=== PATIENT | male | born 2000 | race Caucasian/White ===

== ENCOUNTER 2018-10-10 00:21 | Emergency (ER) | payer BC, OTHER ==
[~2018-10-10] VITALS: Ht 177.8 cm; Wt 70.3 kg
[~2018-10-10 00:21] MED LIST: AMIT10TA6 PO; CLAR-19 PO; PRM25T PO
[2018-10-10] MEDS ORDERED: ONDANSETRON 4 MG (ZOFRAN) ORAL DISSOLVE TAB PO ONE (01:15)
[2018-10-10] MEDS ORDERED: IBUPROFEN 800 MG (MOTRIN) TAB PO ONE (01:15)
[2018-10-10] MEDS ORDERED: ACETAMINOPHEN 500 MG TAB (TYLENOL) PO ONE (01:15)
--- NOTE | 2018-10-10 01:50 | ED General ---
General Chief Complaint: Fever-Adult/Adol Stated Complaint: CHEST PAINS; THROAT NUMB; BODY ACHES Nursing Triage Note: PT PRESENTS TO ED WITH COMPLAINTS OF FEVER, CHILLS, MALAISE, AND THROAT NUMBNESS STARTING AT 1600 YESTERDAY. PT DENIES TAKING ANY FEVER REDUCES SINCE S/S STARTED. Nursing Sepsis Screen: No Definite Risk Source of Information: Patient Exam Limitations: No Limitations History of Present Illness Date Seen by Provider: Oct 10, 2018 Time Seen by Provider: 01:06 Initial Comments PT ARRIVES VIA POV WITH MOM STATES HE FELT FINE THIS AM AND WENT TO WORK, THEN AROUND 1600, HE BEGAN RUNNING FEVER--TEMP WAS 100.5 AT WORK DID NOT TAKE ANY THING FOR FEVER, AND NOW TEMP IS 102.7, SO CAME HERE. AGAIN DID NOT TAKE ANYTHING FOR FEVER C/O BODY ACHES C/O CHILLS C/O NAUSEA, NO VOMITING OR DIARRHEA, NO ABDOMINAL PAIN STATES HIS THROAT DOES NOT HURT--"IT FEELS NUMB" NO COUGH/CONGESTION NO CHEST PAIN OR SHORTNESS OF BREATH NO KNOWN SICK CONTACTS PCP: NONE Allergies and Home Medications Allergies Coded Allergies: No Known Drug Allergies (Unverified , 10/10/18) Home Medications Amoxicillin/Potassium Clav 1 Each Tablet, 1 EACH PO BID Prescribed by: ABRAHAM SHIRLEY on 10/10/18203 Ondansetron 4 Mg Tab.rapdis, 4 MG PO Q4H Prescribed by: ABRAHAM SHIRLEY on 10/10/18203 Patient Home Medication List Home Medication List Reviewed: Yes Review of Systems Review of Systems Constitutional: see HPI, fever, malaise EENTM: see HPI; No ear pain, No nose congestion Respiratory: no symptoms reported; No cough, No short of breath, No wheezing Cardiovascular: no symptoms reported Gastrointestinal: see HPI; No abdominal pain, No diarrhea, No loss of appetite ; nausea; No vomiting Genitourinary: no symptoms reported Musculoskeletal: see HPI (BODY ACHES) Skin: no symptoms reported Psychiatric/Neurological: No Symptoms Reported; Denies Headache Hematologic/Lymphatic: No Symptoms Reported Immunological/Allergic: no symptoms reported Past Pcivtac-Qwhrfv-Tnoayi Hx Patient Social History Alcohol Use: Denies Use Recreational Drug Use: No Smoking Status: Never a Smoker Recent Foreign Travel: No Contact w/Someone Who Travel: No Recent Infectious Disease Expo: No Recent Hopitalizations: No Physical Abuse: No Sexual Abuse: No Mistreated: No Fear: No Seasonal Allergies Seasonal Allergies: No Past Medical History Surgeries: Yes Appendectomy Respiratory: No Cardiac: No Neurological: No Genitourinary: No Gastrointestinal: No Musculoskeletal: No Endocrine: No HEENT: No Cancer: No Psychosocial: No Integumentary: No Blood Disorders: No Physical Exam Vital Signs Vital Signs - First Documented 10/10/18 01:25 Temp 102.3 Pulse 110 Resp 18 B/P (MAP) 135/79 (97) Pulse Ox 97 Capillary Refill : Less Than 3 Seconds Height, Weight, BMI Height: 5'10.00" Weight: 155lbs. oz. 70.043147qh; BMI Method:Stated General Appearance: No Apparent Distress, WD/WN, Thin HEENT: PERRL/EOMI, Pharyngeal Erythema; No Photophobia, No Tonsillar Exudate; Other (RIGHT TM PINK/DULL; ) Neck: Full Range of Motion, Non Tender, Supple, Lymphadenopathy (L) (MILD ANTERIOR), Lymphadenopathy (R) (MILD ANTERIOR) Respiratory: Normal Breath Sounds, No Accessory Muscle Use, No Respiratory Distress Cardiovascular: Regular Rate, Rhythm, No Edema, No JVD, No Murmur, Normal Peripheral Pulses Gastrointestinal: Normal Bowel Sounds, No Organomegaly, No Pulsatile Mass, Non Tender, Soft Back: Normal Inspection, No CVA Tenderness, No Vertebral Tenderness Extremity: Normal Capillary Refill, Normal Inspection, Normal Range of Motion, Non Tender, No Calf Tenderness, No Pedal Edema Neurologic/Psychiatric: Alert, Oriented x3, No Motor/Sensory Deficits, Normal Mood/Affect, wheel roller II-XII Norm as Tested Skin: Normal Color, Diaphoresis (VERY WARM); No Rash Progress/Results/Core Measures Suspected Sepsis Recent Fever Within 48 Hours: No Infection Criteria Present: None New/Unexplained Altered Menta: No Sepsis Screen: No Definite Risk SIRS Temperature:102.3 Pulse: 110 Respiratory Rate: 18 Blood Pressure 135 /79 Mean: 97 Results/Orders Lab Results Laboratory Tests Test 10/10/18 01:27 Range/Units Group A Streptococcus Screen NEGATIVE NEGATIVE Micro Results Microbiology 10/10/18 Influenza Types A,B Antigen (ELVIS) - Final, Complete My Orders Orders - ABRAHAM SHIRLEY DO Acetaminophen Tablet (Tylenol Tablet) (10/10/18 01:15) Ibuprofen Tablet (Motrin Tablet) (10/10/18 01:15) Rapid Strep A Screen (10/10/18 01:14) Influenza A And B Antigens (10/10/18 01:14) Ondansetron Oral Dissolve Tab (Zofran (10/10/18 01:15) Amoxicillin/Clavulanate Tablet (Augmenti (10/10/18 07:00) Rx-Ondansetron Po (Rx-Zofran Po) (10/10/18 02:00) Medications Given in ED Current Medications Medications Dose Ordered Sig/Maxi Route Start Time Stop Time Status Last Admin Dose Admin Acetaminophen 1,000 mg ONCE ONCE PO 10/10/18 01:15 10/10/18 01:16 DC 10/10/18 01:40 1,000 MG Ibuprofen 800 mg ONCE ONCE PO 10/10/18 01:15 10/10/18 01:16 DC 10/10/18 01:51 800 MG Ondansetron HCl 4 mg ONCE ONCE PO 10/10/18 01:15 10/10/18 01:16 DC 10/10/18 01:40 4 MG Vital Signs/I&O 10/10/18 01:25 Temp 102.3 Pulse 110 Resp 18 B/P (MAP) 135/79 (97) Pulse Ox 97 Capillary Refill : Less Than 3 Seconds Blood Pressure Mean: 97 Progress Note : Progress Note TEMP DOWN AND FEELS MUCH BETTER, AND ABLE TO REST FOR REMAINDER OF ER STAY NAUSEA GONE BODY ACHES GONE NO LONGER DIAPHORETIC Departure Impression Primary Impression: Pharyngitis Additional Impression: Right otitis media Disposition: HOME, SELF-CARE Condition: Improved Departure-Patient Inst. Patient Instructions: Sore Throat, Adult (DC), Ear Infections (Otitis Media) ( DC) Add. Discharge Instructions: LOTS OF CLEAR LIQUIDS--WATER, BROTH, JELLO, GATORADE BRATS DIET--BANANAS, RICE, APPLESAUCE, TOAST, SALTINES---UNTIL YOUR NAUSEA IS BETTER, THEN ADVANCE DIET TOLERATED ALTERNATE TYLENOL AND MOTRIN EVERY 2-3 HOURS NEEDED FOR PAIN OR FEVER FOLLOW UP WITH OF JUDY IN 3-4 DAYS IF NO BETTER All discharge instructions reviewed with patient and/or family. Voiced understanding. Scripts Ondansetron (Ondansetron Odt) 4 Mg Tab.rapdis 4 MG PO Q4H for Nausea/Vomiting, #10 TAB Prov: ABRAHAM SHIRLEY DO 10/10/18 Amoxicillin/Potassium Clav (Augmentin 875-125 Tablet) 1 Each Tablet 1 EACH PO BID for INFECTION, #20 TAB Prov: ABRAHAM SHIRLEY DO 10/10/18 Work/School Note: Work Release Form Date Seen in the Emergency Department: Oct 10, 2018 Return to Work: Oct 12, 2018 ABRAHAM SHIRLEY DO Oct 10, 2018 01:50
[2018-10-10] MEDS ORDERED: RX-ONDANSETRON 4 MG ODT (ZOFRAN) PPK #4 PO STA (02:00)
[2018-10-10] MEDS ORDERED: AMOX-358 PO (02:04)
[2018-10-10] MEDS ORDERED: ONDA4TAB11 PO (02:04)
[2018-10-10] MEDS ORDERED: AUGMENTIN 875 MG TAB (AMOXICILLIN/CLAVULANATE) ONE (02:10)
[2018-10-10 02:14] VITALS: BP 113/63
[2018-10-10] MEDS ORDERED: AUGMENTIN 875 MG TAB (AMOXICILLIN/CLAVULANATE) PO SCH (07:00)
== END 2018-10-10 02:14 | disposition home or self-care (01) ==
LOC: EDUNIT# 00:21 → ER 00:25 → MERGE 00:25 → ER 02:14
DX: J02.9 Acute pharyngitis, unspecified (principal); H66.91 Otitis media, unspecified, right ear; Z90.49 Acquired absence of other specified parts of digestive tract
CPT/HCPCS: 87430; 87804

== ENCOUNTER 2019-09-18 20:21 | Emergency (ER) | payer BC ==
[~2019-09-18] VITALS: Ht 180 cm; Wt 72.0 kg
[~2019-09-18 20:21] MED LIST changes: +AMOX-358 PO; +ONDA4TAB11 PO
[2019-09-18 21:17] LABS: BASOPHILS % (AUTO) 0 % (0-10); EOSINOPHILS # (AUTO) 0.1 10^3/uL (0.0-0.3); EOSINOPHILS % (AUTO) 1 % (0-10); HEMATOCRIT 42 % (40-54); LYMPHOCYTES # (AUTO) 2.2 X 10^3 (1.0-4.0); LYMPHOCYTES % (AUTO) 17 % (12-44); MEAN CORPUSCULAR HEMOGLOBIN 29 PG (25-34); MEAN CORPUSCULAR HGB CONC 33 G/DL (32-36); MEAN CORPUSCULAR VOLUME 87 FL (80-99); MEAN PLATELET VOLUME 9.7 FL (7.4-10.4); MONOCYTES # (AUTO) 1.1 X 10^3 (0.0-1.0); MONOCYTES % (AUTO) 8 % (0-12); NEUTROPHILS # (AUTO) 9.6 X 10^3 (1.8-7.8); NEUTROPHILS % (AUTO) 73 % (42-75); PLATELET COUNT 226 10^3/uL (130-400); RED CELL DISTRIBUTION WIDTH 13.2 % (10.0-14.5); WHITE BLOOD COUNT 13.1 10^3/uL (4.3-11.0)
[2019-09-18 21:24] LABS: INR 1.1 (0.8-1.4); PROTHROMBIN TIME PATIENT 15.1 SEC (12.2-14.7)
--- NOTE | 2019-09-18 21:24 | Diagnostic Imaging Report ---
INDICATION: Chest pain EXAMINATION: PA and lateral views of the chest. FINDINGS: The heart size and vascularity are normal. Lungs are clear. There is no effusion. There is no acute bony abnormality. IMPRESSION: 1. No acute abnormality is seen. 2. There is no change from 04/29/2010. Dictated by: Dictated on workstation # [id number]
[2019-09-18 21:33] LABS: ALANINE AMINOTRANSFERASE 20 U/L (0-55); ALBUMIN 4.6 GM/DL (3.2-4.5); ALKALINE PHOSPHATASE 46 U/L (40-136); BILIRUBIN,TOTAL 0.2 MG/DL (0.1-1.0); BUN/CREATININE RATIO 11; CALCIUM 9.5 MG/DL (8.5-10.1); CARBON DIOXIDE 24 MMOL/L (21-32); CHLORIDE 103 MMOL/L (98-107); CREATININE SERUM 1.06 MG/DL (0.60-1.30); GFR ESTIMATED > 60; GLUCOSE 85 MG/DL (70-105); POTASSIUM 3.7 MMOL/L (3.6-5.0); SODIUM 139 MMOL/L (135-145); TOTAL PROTEIN 7.7 GM/DL (6.4-8.2)
--- NOTE | 2019-09-18 21:48 | ED Chest Pain ---
General Chief Complaint: Chest Pain Stated Complaint: CHEST PAIN Nursing Triage Note: Patient states he has been experiencing chest pain for a couple months and that he was told at a physical that he had high blood pressure and should follow up. He states when chest pain occurred tonight he felt he should get checked out. Patient c/o left sided chest pain rating at 7/10. Nursing Sepsis Screen: No Definite Risk Source: patient Exam Limitations: no limitations History of Present Illness Date Seen by Provider: Sep 18, 2019 Time Seen by Provider: 20:41 Initial Comments This 19-year-old male presents to the emergency room with pain across the left chest radiating into the right chest intermittently for about one month. He has also had some headaches recently. Today he had chest pain upon returning home from work but feels normal without pain on presentation. He denies any fever or shortness of breath. He has had a mild cough recently. He denies any exposure to walsh virus or individuals who have traveled from high risk areas or persons under investigation. He denies any alleviating or exacerbating factors except sometimes he has a sharp exacerbation of the pain when he makes abrupt movements and occasionally with a deep breath. He denies any increased pain with exertion. He denies any lower extremity symptoms. He is not tachycardic or hypoxic. He does not smoke. Vital signs are normal on presentation. Allergies and Home Medications Allergies Coded Allergies: NKANo Known Allergies (Unverified Allergy, Mild, 01/31/09) Home Medications Amitriptyline HCl 10 Mg Tablet, 10 MG PO HS Prescribed by: DENNIS MACDONALD on 05/30/15 0618 Amoxicillin/Potassium Clav 1 Each Tablet, 1 EACH PO BID Prescribed by: ABRAHAM SHIRLEY on 10/10/18203 Ondansetron 4 Mg Tab.rapdis, 4 MG PO Q4H Prescribed by: ABRAHAM SHIRLEY on 10/10/18203 Patient Home Medication List Home Medication List Reviewed: Yes Review of Systems Review of Systems Constitutional: no symptoms reported EENTM: No Symptoms Reported Respiratory: See HPI Cardiovascular: See HPI Gastrointestinal: No Symptoms Reported Genitourinary: No Symptoms Reported Musculoskeletal: see HPI Skin: no symptoms reported Psychiatric/Neurological: No Symptoms Reported Endocrine: No Symptoms Reported Hematologic/Lymphatic: No Symptoms Reported Past Svnsiqc-Kwiocu-Ijcuox Hx Past Med/Social Hx: Reviewed Nursing Past Med/Soc Hx Patient Social History Alcohol Use: Occasionally Uses Recreational Drug Use: No Smoking Status: Never a Smoker Recent Foreign Travel: No Contact w/Someone Who Travel: No Recent Infectious Disease Expo: No Recent Hopitalizations: No Immunizations Up To Date Tetanus Booster (TDap): More than 5yrs Seasonal Allergies Seasonal Allergies: No Past Medical History Surgeries: Yes Appendectomy Respiratory: No Cardiac: No Neurological: Yes Headaches /Migraines Reproductive Disorders: No Genitourinary: No Gastrointestinal: No Musculoskeletal: No Endocrine: No HEENT: No Cancer: No Psychosocial: No Integumentary: No Blood Disorders: No Family Medical History Reviewed Nursing Family Hx No Pertinent Family Hx Physical Exam Vital Signs Vital Signs - First Documented 09/18/19 20:33 Pulse 74 Resp 14 B/P (MAP) 130/76 (94) Pulse Ox 99 O2 Delivery Room Air Capillary Refill : Less Than 3 Seconds Height, Weight, BMI Height: 5'10.00" Weight: 155lbs. oz. 70.872862df; 22.00 BMI Method:Stated General Appearance: No Apparent Distress, WD/WN HEENT: PERRL/EOMI, TMs Normal, Normal ENT Inspection, Pharynx Normal Neck: Normal Inspection Respiratory: Chest Non Tender, Lungs Clear, Normal Breath Sounds, No Accessory Muscle Use, No Respiratory Distress Cardiovascular: Regular Rate, Rhythm, No Edema, No Murmur Gastrointestinal: Normal Bowel Sounds, Non Tender, Soft Extremity: Normal Inspection, Non Tender, No Calf Tenderness, No Pedal Edema, Other (negative Luisito) Neurologic/Psychiatric: Alert, Oriented x3, No Motor/Sensory Deficits, Normal Mood/Affect, cold header II-XII Norm as Tested Skin: Normal Color, Warm/Dry Progress/Results/Core Measures Results/Orders Lab Results Laboratory Tests Test 09/18/19 20:55 Range/Units White Blood Count 13.1 H 4.3-11.0 10^3/uL Red Blood Count 4.87 4.35-5.85 10^6/uL Hemoglobin 14.0 13.3-17.7 G/DL Hematocrit 42 40-54 % Mean Corpuscular Volume 87 80-99 FL Mean Corpuscular Hemoglobin 29 25-34 PG Mean Corpuscular Hemoglobin Concent 33 32-36 G/DL Red Cell Distribution Width 13.2 10.0-14.5 % Platelet Count 226 130-400 10^3/uL Mean Platelet Volume 9.7 7.4-10.4 FL Neutrophils (%) (Auto) 73 42-75 % Lymphocytes (%) (Auto) 17 12-44 % Monocytes (%) (Auto) 8 0-12 % Eosinophils (%) (Auto) 1 0-10 % Basophils (%) (Auto) 0 0-10 % Neutrophils # (Auto) 9.6 H 1.8-7.8 X 10^3 Lymphocytes # (Auto) 2.2 1.0-4.0 X 10^3 Monocytes # (Auto) 1.1 H 0.0-1.0 X 10^3 Eosinophils # (Auto) 0.1 0.0-0.3 10^3/uL Basophils # (Auto) 0.0 0.0-0.1 10^3/uL Erythrocyte Sedimentation Rate 11 0-15 MM/HR Prothrombin Time 15.1 H 12.2-14.7 SEC INR Comment 1.1 0.8-1.4 Activated Partial Thromboplast Time 32 24-35 SEC Sodium Level 139 135-145 MMOL/L Potassium Level 3.7 3.6-5.0 MMOL/L Chloride Level 103 98-107 MMOL/L Carbon Dioxide Level 24 21-32 MMOL/L Anion Gap 12 5-14 MMOL/L Blood Urea Nitrogen 12 7-18 MG/DL Creatinine 1.06 0.60-1.30 MG/DL Estimat Glomerular Filtration Rate > 60 BUN/Creatinine Ratio 11 Glucose Level 85 70-105 MG/DL Calcium Level 9.5 8.5-10.1 MG/DL Corrected Calcium 8.5-10.1 MG/DL Magnesium Level 2.0 1.6-2.4 MG/DL Total Bilirubin 0.2 0.1-1.0 MG/DL Aspartate Amino Transf (AST/SGOT) 26 5-34 U/L Alanine Aminotransferase (ALT/SGPT) 20 0-55 U/L Alkaline Phosphatase 46 40-136 U/L Myoglobin 72.2 10.0-92.0 NG/ML Troponin I < 0.028 <0.028 NG/ML C-Reactive Protein High Sensitivity 0.53 H 0.00-0.50 MG/DL Total Protein 7.7 6.4-8.2 GM/DL Albumin 4.6 H 3.2-4.5 GM/DL My Orders Orders - REKHA MICHELE MD Cbc With Automated Diff (09/18/19 20:50) Magnesium (09/18/19 20:50) Ekg Tracing (09/18/19 20:50) Comprehensive Metabolic Panel (09/18/19 20:50) Myoglobin Serum (09/18/19 20:50) Protime With Inr (09/18/19 20:50) Partial Thromboplastin Time (09/18/19 20:50) O2 (09/18/19 20:50) Monitor-Rhythm Ecg Trace Only (09/18/19 20:50) Lipid Panel (09/19/19 06:00) Ed Iv/Invasive Line Start (09/18/19 20:50) Troponin I (09/18/19 20:50) Chest Pa/Lat (2 View) (09/18/19 20:50) Hs C Reactive Protein (09/18/19 20:51) Erythrocyte Sedimentation Rate (09/18/19 20:51) Vital Signs/I&O 09/18/19 09/18/19 09/18/19 20:33 20:33 20:41 Pulse 74 Resp 14 B/P (MAP) 130/76 (94) Pulse Ox 99 98 O2 Delivery Room Air Room Air Room Air Blood Pressure Mean: 94 Progress Progress Note : Progress Note Workup was unremarkable and patient was symptom free. He was discharged home to outpatient follow-up. Initial ECG Impression Date: Sep 18, 2019 Initial ECG Impression Time: 20:41 Initial ECG Rate: 72 Initial ECG Rhythm: Normal Sinus Initial ECG Intervals: Normal Comment Normal sinus rhythm. ST elevation through multiple leads suggestive of juvenile pattern with early repolarization. No abnormal intervals or axis deviation. Diagnostic Imaging Diagonstic Imaging: Xray Plain Films/CT/US/NM/MRI: chest Comments Chest x-ray viewed by me and report reviewed. See report below: NAME: TAB MELTON [facility] REC#: [id number] PT STATUS: REG ER : 2000 PHYSICIAN: REKHA MICHELE MD ADMIT DATE: 09/18/19/ER Signed Date of Exam:09/18/19 CHEST PA/LAT (2 VIEW) INDICATION: Chest pain EXAMINATION: PA and lateral views of the chest. FINDINGS: The heart size and vascularity are normal. Lungs are clear. There is no effusion. There is no acute bony abnormality. IMPRESSION: 1. No acute abnormality is seen. 2. There is no change from 04/29/2010. Dictated by: Dictated on workstation # [id number] Dict: 09/18/192115 Trans: 09/18/192128 [facility] [id number] Interpreted by: JOHNATHAN ELKINS MD Electronically signed by: JOHNATHAN ELKINS MD 09/18/192128 Departure Impression Primary Impression: Atypical chest pain Disposition: HOME, SELF-CARE Condition: Improved Departure-Patient Inst. Decision time for Depature: 21:46 Referrals: [facility] [place] PHYSICIAN (PCP) Primary Care Physician Patient Instructions: Chest Pain (DC), Costochondritis Add. Discharge Instructions: Follow-up with a primary care provider soon as possible. Please call tomorrow to arrange appointments. Take ibuprofen up to 600 mg 2 or 3 times daily to treat your pain. You may add Tylenol (acetaminophen) up to 1000 g every 6 hours for additional pain relief. Return to the emergency room if symptoms worsen despite taking ibuprofen, especially if you develop other symptoms such as shortness of breath, fever, etc. All discharge instructions reviewed with patient and/or family. Voiced understanding. REKHA MICHELE MD Sep 18, 2019 21:48
[2019-09-18 22:00] VITALS: BP 123/79
--- OUTSIDE RECORDS SUMMARY | 2019-09-18 23:31 | XMS REPORT ---
Author Author Yevgeniy Mendez Doctor Organization [facility] Address Unknown Phone Unavailable Care Team Providers Care Guard Captain Name Role Phone Migration, Doctor Unavailable Unavailable PROBLEMS Unknown Problems ALLERGIES No Information ENCOUNTERS Encounter Location Date Diagnosis [facility] [id number] [place] [id number] Jul, Dental examination Z01.20 [facility] [address] [id number] Jul, Migraine with aura and witho ut status migrainosus, not intractable G43.109 [facility] [address] [id number] May, Acute right-sided low back p ain without sciatica M54.5 [facility] [id number] [address] [place] [id number] Feb, Sports physical Z02.5 ; Exer cise counseling Z71.89 and Dietary counseling Z71.3 [facility] [id number] [place] [phone] Oct, [facility] [address] [id number] Jun, Migraine with aura and witho ut status migrainosus, not intractable G43.109 and Sprain of right ankle, unspecified ligament, sequela S93.401S [facility] [id number] [place] [phone] Dec, [facility] [address] [id number] [place] [phone] 14 Oct, 2014 [facility] [address] [id number] Oct, [facility] [address] [id number] [address] [place] [id number] Aug, [facility] [address] [id number] [address] [place] [phone] Aug, [facility] [address] [id number] [address] [place] [phone] Aug, [facility] [address] [id number] [address] [place] [phone] Jul, [facility] [address] [id number] [address] [place] [id number] Jul, [facility] [address] [id number] [address] [place] [id number] Mar, [facility] [address] [id number] [address] [place] [phone] Feb, [facility] [address] [id number] [address] [place] [phone] November, [facility] [address] [id number] [address] [place] [id number] Jul, [facility] [address] [id number] [address] [place] [id number] Jul, [facility] [address] [id number] [address] [place] [phone] Apr, [facility] [address] [id number] [address] [place] [id number] Mar, [facility] [address] [id number] [address] [place] [phone] November, [facility] [address] [id number] [address] [place] [phone] Oct, IMMUNIZATIONS No Known Immunizations SOCIAL HISTORY Never Assessed REASON FOR VISIT [place] [place] VITAL SIGNS MEDICATIONS No Known Medications RESULTS No Results PROCEDURES No Known procedures INSTRUCTIONS MEDICATIONS ADMINISTERED No Known Medications MEDICAL (GENERAL) HISTORY Type Description Date Medical History migraine headaches Surgical History appendectomy Hospitalization History Hospitalization for surgery only
--- OUTSIDE RECORDS SUMMARY | 2019-09-18 23:31 | XMS REPORT ---
Author Author Yevgeniy NEAL [facility] eClinicalWorks Address Unknown Phone Unavailable Care Team Providers Care Sausage Grinder Name Role Phone GREGG NEAL CP Unavailable Allergies, Adverse Reactions, Alerts Substance Reaction Event Type N.K.D.A. Info Not Available Non Drug Allergy Problems Problem Type Condition Code Onset Dates Condition Statu s Assessment Sprain of right ankle, unspecified ligament, sequela S 93.401S Active Assessment Migraine with aura and without status mi grainosus, not intractable G43.109 Active Medications Medication Code System Code Instructions Start Date End Date Status Dosage Amitriptyline HCl [facility] [address]-58 10 MG Orally Once a day 1 tablet at bedtime Procedures Procedure Coding System Code Date Office Visit, Est Pt., Level 3 CPT-4 87717 D 2014 Vital Signs Date/Time: Jun 25, 2015 Temperature 97.2 F BMIPercentile 40.49 % Weight 135.6 lbs Height 68 in BMI 20.62 Index Blood Pressure Diastolic 78 mmHg Blood Pressure Systolic 118 mmHg Cardiac Monitoring Heart Rate 76 bpm Wt Percentile 37.23 % Ht Percentile 35.72 % Results No Known Results Summary Purpose eClinicalWorks Submission
--- OUTSIDE RECORDS SUMMARY | 2019-09-18 23:31 | XMS REPORT ---
Author Author Yevgeniy NEAL [facility] eClinicalWorks Address Unknown Phone Unavailable Care Team Providers Care Software Product Manager Name Role Phone GREGG NEAL Unavailable Allergies No Known Allergies Problems No Known Problems Medications No Known Medications Results No Known Results Summary Purpose eClinicalWorks Submission
--- OUTSIDE RECORDS SUMMARY | 2019-09-18 23:31 | XMS REPORT ---
Author Author Yevgeniy Mendez Doctor Organization [facility] Address Unknown Phone Unavailable Care Team Providers Care Machine Design Engineer Name Role Phone Migration, Doctor Unavailable Unavailable PROBLEMS Type Condition ICD9-CM Code CMV81-TO Code Onset Dates Condition S tatus SNOMED Code Problem Psoriasis L40.9 Active 4041121 ALLERGIES No Information ENCOUNTERS Encounter Location Date Diagnosis [facility] [address] [place] [address] November, Psoriasis L40.9 [facility] [address] [id number] [address] [place] [id number] Jul, Dental examination Z01.20 [facility] [address] [id number] [address] [place] [phone] Jul, Migraine with aura and witho ut status migrainosus, not intractable G43.109 [facility] [address] [id number] [address] [place] [address] May, Acute right-sided low back p ain without sciatica M54.5 [facility] [address] [id number] [address] [place] [phone] Feb, Sports physical Z02.5 ; Exer cise counseling Z71.89 and Dietary counseling Z71.3 [facility] [id number] [place] [address] Oct, [facility] [address] [id number] [address] [place] [address] Jun, Migraine with aura and witho ut status migrainosus, not intractable G43.109 and Sprain of right ankle, unspecified ligament, sequela S93.401S [facility] [address] [id number] [address] [place] [address] Dec, [facility] [address] [id number] [address] [place] [address], [place] [address] 14 Oct, 2014 [facility] [address] [id number] [address] [place] [address], [place] [address] 13 Oct, 2014 [facility] [address] [id number] [address] [place] [address], [place] [address] 19 Aug, 2014 [facility] [address] [id number] [address] [place] [address], [place] [address] 19 Aug, 2014 [facility] [address] [id number] [address] [place] [address], [place] [address] 17 Aug, 2014 [facility] [address] [id number] [address] [place] [address], [place] [address] Jul, [facility] [address] [id number] [address] [place] [address], [place] [address] Jul, [facility] [address] [id number] [address] [place] [address], [place] [address] Mar, [facility] [address] [id number] [address] [place] [address], [place] [address] Feb, [facility] [address] [id number] [address] [place] [phone] 14 Nov, [address] [facility] [address] [id number] [address] [place] [phone] 15 Jul, 2006 [facility] [address] [id number] [address] [place] [phone] 13 Jul, 2005 [facility] [address] [id number] [address] [place] [phone] 13 Apr, 2005 [facility] [address] [id number] [address] [place] [address], [place] [address] 19 Mar, [address] [facility] [address] [id number] [address] [place] [phone] 13 Nov, 2004 [facility] [address] [id number] [address] [place] [phone] Oct, IMMUNIZATIONS No Known Immunizations SOCIAL HISTORY Never Assessed REASON FOR VISIT [place] [place] VITAL SIGNS MEDICATIONS No Known Medications RESULTS No Results PROCEDURES No Known procedures INSTRUCTIONS MEDICATIONS ADMINISTERED No Known Medications MEDICAL (GENERAL) HISTORY Type Description Date Medical History migraine headaches Medical History psoriasis Surgical History appendectomy Hospitalization History Hospitalization for surgery only
--- OUTSIDE RECORDS SUMMARY | 2019-09-18 23:31 | XMS REPORT ---
Author Author Yevgeniy NEAL Organization [facility] Address [address] [place] [address] Care Team Providers Care Drywall Finisher Foreman Name Role Phone ÁNGELAGUILAGREGG Unavailable PROBLEMS Type Condition ICD9-CM Code XAS67-PT Code Onset Dates Condition S tatus SNOMED Code Problem Psoriasis L40.9 Active [id number] ALLERGIES No Information ENCOUNTERS Encounter Location Date Diagnosis [facility] [address] [place] [address] November, Psoriasis L40.9 [facility] [address] [id number] [address] [place] [id number] Jul, Dental examination Z01.20 [place] [address] [id number] [address] [place] [address] Jul, Migraine with aura and witho ut status migrainosus, not intractable G43.109 [place] [address] [address] May, Acute right-sided low back p ain without sciatica M54.5 [facility] [address] [id number] [address] [place] [address] Feb, Sports physical Z02.5 ; Exer cise counseling Z71.89 and Dietary counseling Z71.3 [facility] [address] [id number] [address] [place] [address] Oct, [place] [address] [address] Jun, Migraine with aura and witho ut status migrainosus, not intractable G43.109 and Sprain of right ankle, unspecified ligament, sequela S93.401S [facility] [address] [id number] [address] [place] [address], [place] [address] 04 Dec, 2014 [facility] [address] [id number] [address] [place] [address], [place] [address] 14 Oct, 2014 [facility] [address] [id number] [address] [place] [address], [place] [address] Oct, [facility] [address] [id number] [address] [place] [address], [place] [address] Aug, [facility] [address] [id number] [address] [place] [address], [place] [address] Aug, [facility] [address] [id number] [address] [place] [address], [place] [address] Aug, [facility] [address] [id number] [address] [place] [address], [place] [address] Jul, [facility] [address] [id number] [address] [place] [address], [place] [address] Jul, [facility] [address] [id number] [address] [place] [address], [place] [address] Mar, [facility] [address] [id number] [address] [place] [address], [place] [address] Feb, [facility] [address] [id number] [address] [place] [address], [place] [address] November, [facility] [address] [id number] [address] [place] [address], [place] [address] 15 Jul, 2006 [facility] [address] [id number] [address] [place] [phone] 13 Jul, 2005 [facility] [address] [id number] [address] [place] [address], [place] [address] 13 Apr, 2005 [facility] [address] [id number] [address] [place] [address], [place] [address] 19 Mar, 2005 [facility] [address] [id number] [address] [place] [address], [place] [address] November, [facility] [address] [facility] [id number] [address] [place] [address] Oct, IMMUNIZATIONS No Known Immunizations SOCIAL HISTORY Never Assessed REASON FOR VISIT PLAN OF CARE VITAL SIGNS Height 68 in 2014-08-01 Weight 137.4 lbs 2014-08-01 Temperature 97 degrees Fahrenheit 2014-08-01 Heart Rate 78 bpm 2014-08-01 Respiratory Rate 18 2014-08-01 Blood pressure systolic 122 mmHg 2014-08-01 Blood pressure diastolic 80 mmHg 2014-08-01 MEDICATIONS No Known Medications RESULTS No Results PROCEDURES No Known procedures INSTRUCTIONS MEDICATIONS ADMINISTERED No Known Medications MEDICAL (GENERAL) HISTORY Type Description Date Medical History migraine headaches Medical History psoriasis Surgical History appendectomy Hospitalization History Hospitalization for surgery only
--- OUTSIDE RECORDS SUMMARY | 2019-09-18 23:31 | XMS REPORT ---
Author Author [facility]. Organization [facility]. Address [address] [address] Care Team Providers Care Glass Cutter Helper Name Role Phone ÁNGEL GREGG Unavailable Unavailable [facility] Unavailable [phone] [facility] Unavailable [phone] [facility] Unavailable ÁNGEL, GREGG Unavailable Migration, Doctor Unavailable Unavailable Migration, Doctor Unavailable Unavailable CASPER DO ABRAHAM K Unavailable Unavailable Migration, Doctor Unavailable Unavailable [facility] J Unavailable Unavailable Migration, Doctor Unavailable Unavailable Migration, Doctor Unavailable Unavailable Migration, Doctor Unavailable Unavailable ÁNGEL, GREGG Unavailable ÁNGEL, GREGG Unavailable Allergies Normalized Allergy Reported Date of Reaction(s) Care Provider Facility Allergy Type classification allergen Allergy Onset MA (3 Unclassified NKANo Known 01-31-2009 - no information LI CASPER , DO Not Available sources.) Allergies (64122) Medications The data below is from unstructured sourcesNo Known Medications No Known Medications Unknown Medications Unknown Medications No Known Medications No Known Medications No Known Medications No Known Medications No Known Medications No Known Medications No Known Medications No Known Medications No Known Medications No Known Medications No Known Medications No Known Medications No Known Medications No Known Medications No Known Medications No Known Medications No Known Medications No Known Medications No Known Medications No Known Medications No Known Medications No Known Medications No Known Medications Problems Problem Normalized Date of Normalized Normalized Provider Fac ility Classification Problem(s) Problem Problem Problem Sta tus Onset/Resoluti Duration on Residual Acquired Episodic Active ABRAHAM CASPER , DO Not Avai lable codes; absence of (40739) unclassified other (3 sources.) specified parts of digestive tract Other upper Acute Episodic Active ABRAHAM CASPER , DO Not Av ailable respiratory pharyngitis, (13553) infections (3 unspecified sources.) Fever of Fever, Episodic Active ABRAHAM CASPER , DO Not Avai lable unknown origin unspecified (22214) (3 sources.) Otitis media Otitis media, Episodic Active ABRAHAM CASPER , DO Not Available and related unspecified, (21587) conditions (3 right ear sources.) Other Psoriasis Chronic Active Doctor Community inflammatory Translations: Migration [facility] condition of [ Psoriasis] of [facility] skin (5 [place] ([address]) sources.) Other Psoriasis, Chronic Active Doctor Counts Include [facility] inflammatory unspecified Migration [facility] condition of Translations: of [facility] skin (5 [ - Psoriasis [place] ([address]) sources.) L40.9] Procedures The data below is from unstructured sources Procedure Coding System Code Date Office Visit, Est Pt., Level 3 CPT-4 78231 Jun 25, 2015 No Known procedures Immunizations The data below is from unstructured sources Name Given Type Tetanus Booster (TDap) Unknown Historical No Known Immunizations Results The data below is from unstructured sourcesNo Known Results No Known Results No Known Results No known relevant diagnostic tests, laboratory data and/or discharge summary.No known relevant diagnostic tests, laboratory data and/or discharge summary.No kno wn relevant diagnostic tests, laboratory data and/or discharge summary.No known relevant diagnostic tests, laboratory data and/or discharge summary.No known rel evant diagnostic tests, laboratory data and/or discharge summary.No known releva nt diagnostic tests, laboratory data and/or discharge summary.No known relevant diagnostic tests, laboratory data and/or discharge summary.No known relevant levy gnostic tests, laboratory data and/or discharge summary.No known relevant diagno stic tests, laboratory data and/or discharge summary.No known relevant diagnosti c tests, laboratory data and/or discharge summary. No Results No Results No Results No Results No Results No Results No Results No Results No Results No Results No Results No Results No Results No Results No Results No Results No Results No Results Vital Signs Vital Sign Value Interpretation Reference Date Time Care Prov ider Facility (Normalized) (Normalized) Range Body 97 [degF] (no code) 97.8 - 99.0 08-01-2014 [facility] Temperature [degF] 08:22-0500 [id number] [facility] ([id number]) Body weight 62.32 kg (no code) kg 08-01-2014 [facility] 08:22-0500 [id number] [facility] ([id number]) Height 172.72 cm (no code) 08-01-2014 GREGG NEAL Counts Include [facility] 08:0500 72794 [facility] ([id number]) Interventions No Information Plan of Treatment The data below is from unstructured sources Discharge Date 05/30/15 6:37am Disposition 01 HOME, SELF-CARE Condition at Discharge Stable Instructions/Education Provided Acut e Headache (ED) Prescriptions See Medication Section Referrals [facility] - Primary Care Physician Discharge Date 08/06/15 2:36am Disposition 01 HOME, SELF-CARE Condition at Discharge Stable Instructions/Education Provided Ankl e Sprain (ED) Forms Provided School/Childcare Rele ase Prescriptions See Medication Section Referrals [facility] - Primary Care Physician Additional Instructions/Education Re st, icing in 20 minute intervals, elevation, and compressive wrapping should help reduce pain and swelling. Use a strong supportive lace up or Velcro brace for the next 6-8 weeks while active to prevent reinjury. Gradually advance weightbearing and level of activity as pain allows. Use crutches as necessary. Take ibuprofen up to 600 mg every 6 hours as needed for pain. Add Tylenol up to 1000 mg every 6 hours as needed for dianne tional pain relief. Return to the ER or your primary care provider if not improving as expected or if symptoms worsen. All discharge instructions reviewed with patient and/or family. Voiced understanding. Discharge Date 12/30/15 8:00pm Disposition 01 HOME, SELF-CARE Condition at Discharge Stable Instructions/Education Provided Wris t Injury (ED) Prescriptions See Medication Section Referrals [facility] - Primary Care Physician Additional Instructions/Education Re st, icing in 20 minute intervals, elevation, and use of the splint should help recovery. Follow-up with an orthopedic surgeon for further evaluation. Gradually increase level of activity as pain allows. You may use Tylenol and ibuprofen for pain. All discharge instructions reviewed with patient and/or family. Voiced understanding. Goals No Information Social History The data below is from unstructured sources History Response Recorde d Date/Time Alcohol Use Denies Use 0 11/13/12 8:30pm Recreational Drug Use N 11/13/12 8:30pm Functional Status The data below is from unstructured sources Query Response Date Max rded Patient Orientation Person Place Time Situation Normal For Age May 30, 2015 5:50am Comprehension Ability Understands Co ncepts May 30, 2015 5:50am Query Response Date Max rded Patient Orientation Person Place Time Situation Normal For Age November 27, 2014 1:13pm Comprehension Ability Understands Co ncepts November 27, 2014 1:13pm Mental Status No Information Encounters Encounter Normalized Encounter Encounter Diagnosis Care Provi servando Organization Date Type 11-10-2018 (ESTAB) Establish Care Psoriasis, unspecified [facility] (no [facility] (no phone) - phone) 11-10-2018 - 11-10-2018 10-10-2018 Emergency department no information no name (no roselia ne) no organization name - patient visit (no phone) 10-10-2018 11-10-2018 Patient encounter no information no name (no phone) no organization name procedure (no phone) 10-10-2018 Patient encounter no information no name (no phone) no organization name procedure (no phone) Medical Equipment No Information Payers The data below is from unstructured sources Payer Name Policy Number Subscriber Name Relationship Self Pay JaimeYehuda [employer] 01 Self / Same As Patient Summary Purpose eClinicalWorks SubmissioneClinicalWorks Submission Advance Directives Directive Response Recor ded Date/Time Advance Directives No 5:50am Resuscitation Status Full Code 05/30/15 5:50am Directive Response Recor ded Date/Time Advance Directives No 12:13am Resuscitation Status Full Code 08/06/15 12:13am Directive Response Recor ded Date/Time Advance Directives No 7:04pm Resuscitation Status Full Code 12/30/15 7:04pm Directive Response Recor ded Date Advance Directives N 8:30pm Directive Response Recor ded Date/Time Advance Directives No 1:11pm Resuscitation Status Full Code 11/27/14 1:11pm Discharge Instructions No hospital discharge instructions.No hospital discharge instructions.No hospital discharge instructions.No hospital discharge instructions.No hospital discharge instructions. Additional Source Comments This clinical document has been generated using [employer] software that has been certified by the Office of the National Coordinator for Health Information Technology (ONC 15.99.04.3023.Diam.31.00.0.601330) and the National Committee for Food And Nutrition Professor (NCQA, as an eMeasure certified technology). FOR RECORDS PERTAINING TO PATIENTS WHO ARE OR HAVE BEEN ENROLLED IN A CHEMICAL D EPENDENCY/SUBSTANCE ABUSE PROGRAM, SOME INFORMATION MAY BE OMITTED. This clinica l summary was aggregated from multiple sources. Caution should be exercised in using it in the provision of clinical care. This summary normalizes information from multiple sources, and as a consequence, information in this document may ma terially change the coding, format and clinical context of patient data. In dianne tion, data may be omitted in some cases. CLINICAL DECISIONS SHOULD BE BASED ON T HE PRIMARY CLINICAL RECORDS. [employer] [facility]. provides no warranty or guara ntee of the accuracy or completeness of information in this document.The followi information is based on time limited clinical information UNRECOGNIZED CONTENT PROVIDED BELOW FOR UNRECOGNIZED SECTION REASON FOR VISIT [id number]-Alfonso UNRECOGNIZED CONTENT PROVIDED BELOW FOR UNRECOGNIZED SECTION MEDICAL (GENERAL) HISTORY Type Description Date Medical History migraine headaches Surgical History appendectomy Hospitalization History Hospitalizat ion for surgery only Type Description Date Medical History migraine headaches Medical History psoriasis Surgical History appendectomy Hospitalization History Hospitalizat ion for surgery only
--- OUTSIDE RECORDS SUMMARY | 2019-09-18 23:31 | XMS REPORT ---
Author Author Yevgeniy Mendez Doctor Organization [facility] Address Unknown Phone Unavailable Care Team Providers Care Corporate Quality Assurance Manager Name Role Phone Migration, Doctor Unavailable Unavailable PROBLEMS Type Condition ICD9-CM Code TWI64-UR Code Onset Dates Condition S tatus SNOMED Code Problem Psoriasis L40.9 Active [id number] ALLERGIES No Information ENCOUNTERS Encounter Location Date Diagnosis [facility] [address] [place] [address] November, Psoriasis L40.9 [facility] [address] [id number] [address] [place] [phone] Jul, Dental examination Z01.20 [facility] [address] [id number] [address] [place] [address] Jul, Migraine with aura and witho ut status migrainosus, not intractable G43.109 [facility] [address] [address] May, Acute right-sided low back p ain without sciatica M54.5 [facility] [address] [id number] [address] [place] [address] Feb, Sports physical Z02.5 ; Exer cise counseling Z71.89 and Dietary counseling Z71.3 [facility] [address] [place] [address] Oct, [facility] [address] [id number] [address] [place] [address] Jun, Migraine with aura and witho ut status migrainosus, not intractable G43.109 and Sprain of right ankle, unspecified ligament, sequela S93.401S [facility] [address] [id number] [address] [place] [address] Dec, [facility] [address] [id number] [address] [place] [address], [place] [address] 14 Oct, 2014 [facility] [address] [id number] [address] [place] [address], [place] [address] 13 Oct, 2014 [facility] [address] [id number] [address] [place] [address], [place] [address] 19 Aug, 2014 [facility] [address] [id number] [address] [place] [address], [place] [address] 19 Aug, 2014 [facility] [address] [id number] [address] [place] [address], [place] [address] 17 Aug, 2014 [facility] [address] [id number] [address] [place] [address], [place] [address] Jul, [facility] [address] [id number] [address] [place] [address], [place] [address] Jul, [facility] [address] [id number] [address] [place] [address], [place] [address] Mar, [facility] [address] [id number] [address] [place] [address], [place] [address] Feb, [facility] [address] [id number] [address] [place] [address] 14 Nov, 2006 [facility] [address] [id number] [address] [place] [address] 15 Jul, 2006 [facility] [address] [id number] [address] [place] [address] 13 Jul, 2005 [facility] [address] [id number] [address] [place] [address] 13 Apr, 2005 [facility] [address] [id number] [address] [place] [address], [place] [address] 19 Mar, 2005 [facility] [address] [id number] [address] [place] [address] 13 Nov, 2004 [facility] [address] [id number] [address] [place] [address] Oct, IMMUNIZATIONS No Known Immunizations SOCIAL HISTORY Never Assessed REASON FOR VISIT EMR-[facility] PLAN OF CARE VITAL SIGNS MEDICATIONS No Known Medications RESULTS No Results PROCEDURES No Known procedures INSTRUCTIONS MEDICATIONS ADMINISTERED No Known Medications MEDICAL (GENERAL) HISTORY Type Description Date Medical History migraine headaches Medical History psoriasis Surgical History appendectomy Hospitalization History Hospitalization for surgery only
--- OUTSIDE RECORDS SUMMARY | 2019-09-18 23:31 | XMS REPORT ---
Author Author Yevgeniy NEAL [facility] Address [facility] [place] [address] Care Team Providers Care Bdc Manager Name Role Phone GREGG NEAL Unavailable PROBLEMS Unknown Problems ALLERGIES No Known Allergies SOCIAL HISTORY No smoking Hx information available PLAN OF CARE VITAL SIGNS MEDICATIONS Medication Instructions Dosage Frequency Start Date End Date Duration S tatus Amitriptyline HCl 10 mg Orally Once a day 1 tablet at bedtime 24h 30 days Active RESULTS No Results PROCEDURES No Known procedures IMMUNIZATIONS No Known Immunizations
--- OUTSIDE RECORDS SUMMARY | 2019-09-18 23:31 | XMS REPORT ---
Author Author Yevgeniy NEAL Organization [facility] Address [address] [place] [address] Care Team Providers Care Database Dba Name Role Phone ÁNGELAGUILAGREGG Unavailable PROBLEMS Type Condition ICD9-CM Code SIC61-XA Code Onset Dates Condition S tatus SNOMED Code Problem Psoriasis L40.9 Active 2755996 ALLERGIES No Information ENCOUNTERS Encounter Location Date Diagnosis [facility] [address] [place] [address] November, Psoriasis L40.9 [facility] [address] [id number] [address] [place] [id number] Jul, Dental examination Z01.20 [place] [address] [id number] [address] [place] [address] Jul, Migraine with aura and witho ut status migrainosus, not intractable G43.109 [place] [address] [address] May, Acute right-sided low back p ain without sciatica M54.5 [facility] [address] [id number] [address] [place] [address] Feb, Sports physical Z02.5 ; Exer cise counseling Z71.89 and Dietary counseling Z71.3 [facility] [address] [id number] [address] [place] [address] Oct, [place] [address] [address] Jun, Migraine with aura and witho ut status migrainosus, not intractable G43.109 and Sprain of right ankle, unspecified ligament, sequela S93.401S [facility] [address] [id number] [address] [place] [address], [place] [address] 04 Dec, 2014 [facility] [address] [id number] [address] [place] [address], [place] [address] 14 Oct, 2014 [facility] [address] [id number] [address] [place] [address], [place] [address] Oct, [facility] [address] [id number] [address] [place] [address], [place] [address] Aug, [facility] [address] [id number] [address] [place] [address], [place] [address] Aug, [facility] [address] [id number] [address] [place] [address], [place] [address] Aug, [facility] [address] [id number] [address] [place] [address], [place] [address] Jul, [facility] [address] [id number] [address] [place] [address], [place] [address] Jul, [facility] [address] [id number] [address] [place] [address], [place] [address] Mar, [facility] [address] [id number] [address] [place] [address], [place] [address] Feb, [facility] [address] [id number] [address] [place] [address], [place] [address] November, [facility] [address] [id number] [address] [place] [address], [place] [address] 15 Jul, 2006 [facility] [address] [id number] [address] [place] [address] 13 Jul, 2005 [facility] [address] [id number] [address] [place] [address], [place] [address] 13 Apr, 2005 [facility] [address] [id number] [address] [place] [address], [place] [address] 19 Mar, 2005 [facility] [address] [id number] [address] [place] [address], [place] [address] November, [facility] [address] [facility] [id number] [address] [place] [address] Oct, IMMUNIZATIONS No Known Immunizations SOCIAL HISTORY Never Assessed REASON FOR VISIT PLAN OF CARE VITAL SIGNS MEDICATIONS No Known Medications RESULTS No Results PROCEDURES No Known procedures INSTRUCTIONS MEDICATIONS ADMINISTERED No Known Medications MEDICAL (GENERAL) HISTORY Type Description Date Medical History migraine headaches Medical History psoriasis Surgical History appendectomy Hospitalization History Hospitalization for surgery only
--- OUTSIDE RECORDS SUMMARY | 2019-09-18 23:31 | XMS REPORT ---
Author Author Yevgeniy Mendez Doctor Organization [facility] Address Unknown Phone Unavailable Care Team Providers Care Chlorine Cell Tender Name Role Phone Migration, Doctor Unavailable Unavailable PROBLEMS Unknown Problems ALLERGIES No Information ENCOUNTERS Encounter Location Date Diagnosis [facility] [address] [id number] [address] [place] [id number] Jul, Dental examination Z01.20 [facility] [address] [address] Jul, Migraine with aura and witho ut status migrainosus, not intractable G43.109 [facility] [address] [address] May, Acute right-sided low back p ain without sciatica M54.5 [facility] [address] [id number] [address] [place] [address] Feb, Sports physical Z02.5 ; Exer cise counseling Z71.89 and Dietary counseling Z71.3 [facility] [address] [id number] [address] [place] [address] Oct, [facility] [address] [address] Jun, Migraine with aura and witho ut status migrainosus, not intractable G43.109 and Sprain of right ankle, unspecified ligament, sequela S93.401S [facility] [address] [id number] [address] [place] [address] 04 Dec, 2014 [facility] [address] [id number] [address] [place] [address] [address] Oct, 2014 [facility] [address] [address] Oct, [facility] [address] [id number] [address] [place] [address] Aug, [facility] [address] [id number] [address] [place] [address] Aug, [facility] [address] [id number] [address] [place] [address] Aug, [facility] [address] [id number] [address] [place] [address] Jul, [facility] [address] [id number] [address] [place] [address] Jul, [facility] [address] [id number] [address] [place] [address] Mar, [facility] [address] [id number] [address] [place] [address] Feb, [facility] [address] [id number] [address] [place] [address] November, [facility] [address] [id number] [address] [place] [address] Jul, [facility] [address] [id number] [address] [place] [address] Jul, [facility] [address] [id number] [address] [place] [address] Apr, [facility] [address] [id number] [address] [place] [address] Mar, [facility] [address] [id number] [address] [place] [address] November, [facility] [address] [id number] [address] [place] [address] Oct, IMMUNIZATIONS No Known Immunizations SOCIAL HISTORY Never Assessed REASON FOR VISIT [facility] PLAN OF CARE VITAL SIGNS MEDICATIONS Medication Instructions Dosage Frequency Start Date End Date Duration S brenda amitriptyline 10 mg 1 tablet by Oral route 1 time per day at bedtime Aug, Active Sumatriptan Succinate 50 mg take 1 Table t by Oral route 1 time per day at start of REYNOSO; rpt in 2hrs if REYNOSO recurs, not more than 200mg/24hrs PRN Jul, Active promethazine 25 mg take 1 tablet by Ora l route every 4 hours as needed PRN nausea, vomiting Jul, Active RESULTS No Results PROCEDURES No Known procedures INSTRUCTIONS MEDICATIONS ADMINISTERED No Known Medications MEDICAL (GENERAL) HISTORY Type Description Date Medical History migraine headaches Surgical History appendectomy Hospitalization History Hospitalization for surgery only
--- OUTSIDE RECORDS SUMMARY | 2019-09-18 23:31 | XMS REPORT ---
Author Author Yevgeniy Mendez Doctor Organization [facility] Address Unknown Phone Unavailable Care Team Providers Care Certified Residential Medication Aide Name Role Phone Migration, Doctor Unavailable Unavailable PROBLEMS Type Condition ICD9-CM Code [id number] Code Onset Dates Condition S tatus SNOMED Code Problem Psoriasis L40.9 Active [id number] ALLERGIES No Information ENCOUNTERS Encounter Location Date Diagnosis [facility] [address] [place] [address] November, Psoriasis L40.9 [facility] [address] [id number] [address] [place] [id number] Jul, Dental examination Z01.20 [facility] [address] [id number] [address] [place] [address] Jul, Migraine with aura and witho ut status migrainosus, not intractable G43.109 [facility] [address] [address] May, Acute right-sided low back p ain without sciatica M54.5 [facility] [address] [id number] [address] [place] [address] Feb, Sports physical Z02.5 ; Exer cise counseling Z71.89 and Dietary counseling Z71.3 [facility] [address] [place] [address] Oct, [facility] [address] [id number] [address] [place] [address] Jun, Migraine with aura and witho ut status migrainosus, not intractable G43.109 and Sprain of right ankle, unspecified ligament, sequela S93.401S [facility] [address] [id number] [address] [place] [address] Dec, [facility] [address] [id number] [address] [place] [address], [place] [address] 14 Oct, 2014 [facility] [address] [id number] [address] [place] [address], [place] [address] 13 Oct, 2014 [facility] [address] [id number] [address] [place] [address], [place] [address] 19 Aug, 2014 [facility] [address] [id number] [address] [place] [address], [place] [address] 19 Aug, 2014 [facility] [address] [id number] [address] [place] [address], [place] [address] 17 Aug, 2014 [facility] [address] [id number] [address] [place] [address], [place] [address] Jul, [facility] [address] [id number] [address] [place] [address], [place] [address] Jul, [facility] [address] [id number] [address] [place] [address], [place] [address] Mar, [facility] [address] [id number] [address] [place] [address], [place] [address] Feb, [facility] [address] [id number] [address] [place] [phone] 14 Nov, 2006 [facility] [address] [id number] [address] [place] [phone] 15 Jul, 2006 [facility] [address] [id number] [address] [place] [address] 13 Jul, 2005 [facility] [address] [id number] [address] [place] [address] 13 Apr, 2005 [facility] [address] [id number] [address] [place] [address], [place] [address] 19 Mar, 2005 [facility] [address] [id number] [address] [place] [phone] 13 Nov, 2004 [facility] [address] [id number] [address] [place] [phone] Oct, IMMUNIZATIONS No Known Immunizations SOCIAL HISTORY [...]
--- OUTSIDE RECORDS SUMMARY | 2019-09-18 23:32 | XMS REPORT | Continuity of Care Document ---
Author Organization Unknown Address Unknown Phone Unavailable Allergies Active Description Code Type Severity Reaction Onset Reported/Identified Relationship to Patient Clinical Status Yes NKANo Known Allergies NKA Miscellaneous Allergy Mild N/A 01/31/2009 Medications There is no data. Problems Date Dx Coded Attending Type Code Diagnosis Diagnosed By 02/21/2008 GREGG NEAL MD N V20 .2 WELL CHILD, ROUTINE 03/22/2008 GREGG NEAL MD 919 .0 ABRASION UNSPECIFIED 04/05/2008 GREGG NEAL MD N 696 .1 PSORIASIS 09/25/2009 Ot 850.0 09/25/2009 Ot 959.01 09/25/2009 Ot E000.8 09/25/2009 Ot E030 09/25/2009 Ot E849.6 09/25/2009 Ot E917.9 02/07/2010 GREGG NEAL MD V70 .3 SPORTS/SCHOOL EXAM 03/30/2010 GREGG NEAL MD 462 PHARYNGITIS ACUTE 04/29/2010 Ot 486 04/29/2010 Ot 786.2 09/05/2010 Ot 346.90 09/05/2010 Ot 379.91 11/13/2012 REKHA MICHELE MD Ot 918.1 11/13/2012 REKHA MICHELE MD Ot 921.9 11/13/2012 REKHA MICHELE MD Ot E000.8 11/13/2012 REKHA MICHELE MD Ot E849.0 11/13/2012 REKHA MICHELE MD Ot E914 08/01/2014 GREGG NEAL MD 346 .90 HEADACHE, MIGRAINE 11/27/2014 WHIT CABRERA APRN Ot 784 .0 05/30/2015 RENAE ROBERTO, DENNIS Horton Ot G43.909 08/06/2015 REKHA MICHELE MD Ot S93.402A 08/06/2015 REKHA MICHELE MD Ot W01.0XXA 08/06/2015 REKHA MICHELE MD T Ot Y92.310 08/06/2015 REKHA MICHELE MD T Ot Y93.67 08/06/2015 REKHA MICHELE MD Ot Y99.8 12/30/2015 REKHA MICHELE MD Ot S69.92XA UNSP INJURY OF LEFT WRIST, HAND AND FING 12/30/2015 REKHA MICHELE MD Ot W01.0XXA FALL SAME LEV FROM SLIP/TRIP W/O STRIKE 12/30/2015 REKHA MICHELE MD Ot Y92.[address] 12/30/2015 REKHA MICHELE MD Ot Y93.67 ACTIVITY, BASKETBALL 12/30/2015 REKHA MICHELE MD Ot Y99.8 OTHER EXTERNAL CAUSE STATUS 12/31/2015 REKHA MICHELE MD Ot S69.92XA UNSP INJURY OF LEFT WRIST, HAND AND FING 12/31/2015 REKHA MICHELE MD Ot W01.0XXA FALL SAME LEV FROM SLIP/TRIP W/O STRIKE 12/31/2015 REKHA MICHELE MD Ot Y92.[address] 12/31/2015 REKHA MICHELE MD Ot Y93.67 ACTIVITY, BASKETBALL 12/31/2015 REKHA MICHELE MD Ot Y99.8 OTHER EXTERNAL CAUSE STATUS 10/10/2018 Ot H66.91 HARPREET TIS MEDIA, UNSPECIFIED, RIGHT EAR 10/10/2018 Ot J02.9 ACUT E PHARYNGITIS, UNSPECIFIED 10/10/2018 Ot R50.9 FEVE R, UNSPECIFIED 10/10/2018 Ot Z90.49 ACQ UIRED ABSENCE OF OTHER SPECIFIED PART 10/12/2018 Ot H66.91 HARPREET TIS MEDIA, UNSPECIFIED, RIGHT EAR 10/12/2018 Ot J02.9 ACUT E PHARYNGITIS, UNSPECIFIED 10/12/2018 Ot R50.9 FEVE R, UNSPECIFIED 10/12/2018 Ot Z90.49 ACQ UIRED ABSENCE OF OTHER SPECIFIED PART Procedures There is no data. Results Test Result Range Bacterial throat culture - 10/10/18 01:2 7 Bacterial throat culture NBS NRG Encounters ACCT No. Visit Date/Time Discharge Status Pt. Type Provider Facility Loc./Unit Complaint [id number] 08/01/2014 08:22:00 08/01/2014 23:59: 59 CLS Outpatient ÁNGEL ROBERTO, GREGG Solis [id number] 12/30/2015 17:10:00 016 20:00:00 DIS Emergency REKHA MICHELE MD Via [facility] ER [id number] 08/06/2015 00:00:00 016 02:36:00 DIS Emergency REKHA MICHELE MD Via [facility] ER [id number] 05/30/2015 05:46:00 015 06:37:00 DIS Emergency DENNIS MACDONALD MD Via [facility] ER [id number] 11/27/2014 13:02:00 015 14:35:00 DIS Emergency WHIT CABRERA APRN [facility] ER [id number] 11/13/2012 20:26:00 013 23:20:00 DIS Emergency REKHA MICHELE MD Via [facility] ER [id number] 10/10/2018 00:25:00 Document Registration [id number] 11/27/2014 13:01:00 Document Registration [id number] 09/05/2010 10:33:00 Document Registration [id number] 09/25/2009 21:02:00 Document Registration [id number] 11/10/2018 10:40:00 11/10/2018 23:59:5 9 CLS Outpatient [facility]
== END 2019-09-18 22:00 | disposition home or self-care (01) ==
LOC: EDUNIT# 20:21 → ER 20:23
DX: R07.89 Other chest pain (principal)
CPT/HCPCS: 36415; 71046; 80053; 83735; 83874; 84484; 85025; 85610; 85652; 85730; 86141; 93005; 93041

== ENCOUNTER 2021-07-26 20:05 | Emergency (ER) | payer BC ==
[~2021-07-26] VITALS: Ht 177.8 cm; Wt 72.6 kg
[~2021-07-26 20:05] MED LIST changes: +AMT10T PO
[2021-07-26 20:11] VITALS: BP 148/91
--- NOTE | 2021-07-26 20:18 | ED EENT ---
History of Present Illness General Stated Complaint: CHEST PAIN/ SOA/ FEVER/ LOSS OF TASTE AND SMELL Source: patient Exam Limitations: no limitations (WHIT CABRERA APRN) History of Present Illness Date Seen by Provider: Jul 26, 2021 Time Seen by Provider: 20:15 Initial Comments Exposed to someone last week who tested COVID-positive. Over the past few days (2-3) developed cough with chest pain, fever up to 102 sore throat loss of taste. He is unvaccinated against COVID. Timing/Duration: abrupt Severity: moderate Location: nose Prearrival Treatment: no prearrival treatment Associated Symptoms: cough (WHIT CABRERA APRN) Allergies and Home Medications Allergies Coded Allergies: NKANo Known Allergies (Unverified Allergy, Mild, 01/31/09) Patient Home Medication List Home Medication List Reviewed: Yes (WHIT CABRERA APRN) Amitriptyline HCl (Amitriptyline HCl) 10 Mg Tablet, 10 MG PO HS Prescribed by: DENNIS MACDONALD on 05/30/15 0618 Amoxicillin/Potassium Clav (Augmentin 875-125 Tablet) 1 Each Tablet, 1 EACH PO BID Prescribed by: ABRAHAM SHIRLEY on 10/10/18203 Ondansetron (Ondansetron Odt) 4 Mg Tab.rapdis, 4 MG PO Q4H Prescribed by: ABRAHAM SHIRLEY on 10/10/18203 Review of Systems Review of Systems Constitutional: see HPI, chills, fever, malaise Eyes: No Symptoms Reported Ears: No Symptoms Reported Nose: see HPI Mouth: no symptoms reported Throat: no symptoms reported Respiratory: see HPI, cough Cardiovascular: no symptoms reported Musculoskeletal: no symptoms reported Skin: no symptoms reported Neurological: No Symptoms Reported Hematologic/Lymphatic: No Symptoms Reported Immunological/Allergic: no symptoms reported (WHIT CABRERA APRN) Past Wvcyhyi-Wuwmbv-Xrxxwv Hx Immunizations Up To Date Tetanus Booster (TDap): More than 5yrs (WHIT CABRERA APRN) Seasonal Allergies Seasonal Allergies: No (WHIT CABRERA APRN) Past Medical History Surgeries: Yes Appendectomy Respiratory: No Cardiac: No Neurological: Yes Headaches /Migraines Reproductive Disorders: No Genitourinary: No Gastrointestinal: No Musculoskeletal: No Endocrine: No HEENT: No Cancer: No Psychosocial: No Integumentary: No Blood Disorders: No (WHIT CABRERA APRN) Family Medical History No Pertinent Family Hx (WHIT CABRERA APRN) Physical Exam Vital Signs Vital Signs - First Documented 07/26/21 20:11 Temp 36.7 Pulse 85 Resp 18 B/P (MAP) 148/91 (110) Pulse Ox 99 O2 Delivery Room Air (CASPERTuneCoreABRAHAM HDB Newco DO) Height, Weight, BMI Height: 5'10.00" Weight: 155lbs. oz. 70.342121ut; 22.00 BMI Method:Stated General Appearance: WD/WN, no apparent distress Eyes: bilateral eye normal inspection, bilateral eye PERRL, bilateral eye EOMI Ears: bilateral ear auricle normal, bilateral ear canal normal, bilateral ear TM normal, bilateral ear other (Slight erythema/eczematous changes to bilateral ears which is a known problem. [facility] Neck: non-tender, full range of motion Respiratory: no respiratory distress, no accessory muscle use Gastrointestinal: normal bowel sounds, non tender Neurologic/Psychiatric: alert, normal mood/affect Skin: normal color, warm/dry (WHIT CABRERA APRN) Progress/Results/Core Measures Results/Orders Lab Results Laboratory Tests Test 07/26/21 20:13 Range/Units Influenza Type A (RT-PCR) Not Detected Not Detecte Influenza Type B (RT-PCR) Not Detected Not Detecte SARS-CoV-2 RNA (RT-PCR) Detected H Not Detecte (CASPERKalionA K DO) Vital Signs/I&O 07/26/21 20:11 Temp 36.7 Pulse 85 Resp 18 B/P (MAP) 148/91 (110) Pulse Ox 99 O2 Delivery Room Air (CASPERKalionA K DO) Departure Impression Primary Impression: COVID-19 Disposition: 01 HOME, SELF-CARE Condition: Stable Departure-Patient Inst. Decision time for Depature: 20:46 (WHIT CABRERA APRN) Referrals: NO,LOCAL PHYSICIAN (PCP/Family) Primary Care Physician Patient Instructions: COVID-19 Overview Add. Discharge Instructions: . Tylenol and ibuprofen for fever or body aches. You can continue to use mwbm-elj-ponhqei cough and cold remedies as well. Return to ER for any worsening. Work/School Note: Work Release Form Date Seen in the Emergency Department: Jul 26, 2021 Return to Work: Jul 31, 2021 ATTENDING PHYSICIAN NOTE: I WAS PHYSICALLY PRESENT ER PHYSICIAN WHEN THIS PATIENT WAS IN ER, BUT I WAS NOT INVOLVED IN ANY DECISION MAKING OR ANY CARE OF THIS PATIENT. (ABRAHAM SHIRLEY DO) WHIT CABRERA APRN Jul 26, 2021 20:18 ABRAHAM SHIRLEY DO Jul 27, 2021 05:23
== END 2021-07-26 20:50 | disposition home or self-care (01) ==
LOC: EDUNIT# 20:05 → ER 20:06
DX: U07.1 COVID-19 (principal)
CPT/HCPCS: 87636; 99285

== ENCOUNTER 2021-09-29 09:30 | Emergency (ER) | payer SELFPAY ==
[~2021-09-29] VITALS: Ht 180 cm; Wt 70.3 kg
--- NOTE | 2021-09-29 09:56 | ED General ---
General Chief Complaint: General Problems/Pain Stated Complaint: HEADACHE - VOMITING - FEVER - CHEST PAIN 09/28 Nursing Triage Note: PT AMBULATORY TO ER WITH SO. PT REPORTS INTERMITTENT CP, L SIDED, SHARP PAIN, FOR 'A LONG TIME'. REPORTS UNCLE RECENTLY FROM ENLARGED HEART AND HE WANTS TO GET CHECKED OUT. PT ALSO REPORTS COUGH, MUSCLE ACHES, FEVER. Source of Information: Patient Exam Limitations: No Limitations (BEBE RIVAS STUDENT) History of Present Illness Date Seen by Provider: Sep 29, 2021 Time Seen by Provider: 09:45 Initial Comments Patient is a 21 year old male who presents with complaints of cough, fever, headache, body aches, and vomiting. Reports 2 days ago began having a nonproductive cough. Yesterday while at work developed a bad headache, malaise, and body aches. Last night he developed subjective fevers and chills that lasted 30-45 minutes. This am he vomited x 1 and had some blood in it. He reports decreased appetite for the last two days as well. Yesterday he had some sharp left sided chest pain which was nonradiatory. 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 Reports that he had an uncle about 2 weeks ago from an "enlarged heart" and that it runs in the family. Currently reports sharp left sided chest pain rated at a 4/10. Was seen in clinic this am and had an EKG done and was tested for flu which was negative. Received 1 gram tylenol in clinic and was sent here for further evaluation. Timing/Duration: 2-3 Days Severity: Mild Modifying Factors: improves with Other (moving left arm and coughing) Associated Systoms: Chest Pain, Cough; No Diaphoresis; Fever/Chills, Headaches, Loss of Appetite, Malaise, Nausea/Vomiting; No Shortness of Air, No Syncope, No Weakness (BEBE RIVAS STUDENT) Allergies and Home Medications Allergies Coded Allergies: NKANo Known Allergies (Unverified Allergy, Mild, 01/31/09) Patient Home Medication List Home Medication List Reviewed: Yes (CHELSIE HERRERA MD) Amitriptyline HCl (Amitriptyline HCl) 10 Mg Tablet, 10 MG PO HS Prescribed by: DENNIS MACDONALD on 05/30/15 0618 Amoxicillin/Potassium Clav (Augmentin 145-125 Tablet) 1 Each Tablet, 1 EACH PO BID Prescribed by: ABRAHAM SHIRLEY on 10/10/18203 Ondansetron (Ondansetron Odt) 4 Mg Tab.rapdis, 4 MG PO Q4H Prescribed by: ABRAHAM SHIRLEY on 10/10/18203 Ondansetron (Ondansetron Odt) 4 Mg Tab.rapdis, 4 MG PO Q8H PRN for nausea Prescribed by: CHELSIE HERRERA on 09/29/21 1024 Review of Systems Review of Systems Constitutional: chills, fever, malaise EENTM: no symptoms reported; No blurred vision, No double vision, No nose congestion, No throat swelling Respiratory: cough; No dyspnea on exertion; hemoptysis; No short of breath Cardiovascular: chest pain; No edema, No palpitations, No syncope Gastrointestinal: No abdominal pain, No constipation, No diarrhea; loss of appetite, nausea, vomiting Genitourinary: no symptoms reported; No discharge, No dysuria Musculoskeletal: see HPI; No back pain, No joint pain; other (generalized body aches) Skin: change in color; No change in hair/nails; dryness, lesions (has psoriatic lesions all over body) Psychiatric/Neurological: No Symptoms Reported; Denies Anxiety, Denies Depressed Hematologic/Lymphatic: No Symptoms Reported; Denies Easy Bleeding, Denies Easy Bruising Immunological/Allergic: no symptoms reported (BEBE RIVAS STUDENT) All Other Systems Reviewed Negative Unless Noted: Yes (BEBE RIVAS STUDENT) Past Szkubaw-Bgxpre-Thbkeb Hx Patient Social History Tobacco Use?: No Smoking Status: Never a Smoker Smokeless Tobacco Frequency: Never a User Use of E-Cig and/or Vaping dev: No Use of E-Cig and/or Vaping Ayan: Never a User Substance use?: No Alcohol Use?: Yes Alcohol Frequency: Rarely (BEBE RIVAS Tailored STUDENT) Immunizations Up To Date Tetanus Booster (TDap): More than 5yrs Influenza Vaccine Up-to-Date: No; Not Current First/Initial COVID19 Vaccinat: NONE Second COVID19 Vaccination James: NONE Third COVID19 Vaccination Date: NONE (BEBE RIVAS MED STUDENT) Seasonal Allergies Seasonal Allergies: No (BEBE RIVAS Tailored STUDENT) Past Medical History Surgeries: Yes Appendectomy Respiratory: No Cardiac: No Neurological: Yes Headaches /Migraines Reproductive Disorders: No Genitourinary: No Gastrointestinal: No Musculoskeletal: No Endocrine: No HEENT: No Loss of Vision: Denies Hearing Impairment: Denies Cancer: No Psychosocial: No Integumentary: Yes Psoriasis Blood Disorders: No (BEBE RIVAS Tailored STUDENT) Family Medical History Heart Disease (BEBE RIVAS Tailored HEIDY) Physical Exam Vital Signs Vital Signs - First Documented 09/29/21 09:35 Temp 37.3 Pulse 113 Resp 20 B/P (MAP) 116/78 (91) Pulse Ox 96 O2 Delivery Room Air (CHELSIE HERRERA MD) Vital Signs Capillary Refill : (BEBE [employer]IVAS Tailored STUDENT) Height, Weight, BMI Height: 5'10.00" Weight: 155lbs. oz. 70.333222cp; 21.00 BMI Method:Stated General Appearance: No Apparent Distress, WD/WN Eyes: Bilateral Eye Normal Inspection, Bilateral Eye PERRL, Bilateral Eye EOMI HEENT: PERRL/EOMI, Pharynx Normal, Moist Mucous Membranes Neck: Full Range of Motion, Normal Inspection, Non Tender Respiratory: Chest Non Tender, Lungs Clear, Normal Breath Sounds, No Accessory Muscle Use Cardiovascular: No Edema, No Murmur, Normal Peripheral Pulses, Tachycardia Gastrointestinal: Normal Bowel Sounds, Non Tender, Soft Rectal: Deferred Back: Normal Inspection, No Vertebral Tenderness Extremity: Normal Capillary Refill, Normal Inspection, Non Tender, No Calf Tenderness Neurologic/Psychiatric: Alert, Oriented x3, No Motor/Sensory Deficits Skin: Warm/Dry, Other (Scattered Psoriatic lesions over scalp, trunk, and extremities. Red appearing, non infected and scaly in appearance. ) Lymphatic: No Adenopathy (Head and Neck) (BEBE RIVAS Tailored STUDENT) Progress/Results/Core Measures Suspected Sepsis SIRS Temperature: Pulse: 113 Respiratory Rate: 20 Blood Pressure 116 /78 Mean: 91 (BEBE RIVAS Tailored STUDENT) Results/Orders Lab Results Laboratory Tests Test 09/29/21 10:18 Range/Units (CHELSIE HERRERA MD) My Orders Orders - CHELSIE HERRERA MD Covid 19 Inhouse Test (09/29/21 10:13) Ketorolac Injection (Toradol Injection) (09/29/21 10:15) (CHELSIE HERRERA MD) Medications Given in ED Current Medications Medications Dose Ordered Sig/Maxi Route Start Time Stop Time Status Last Admin Dose Admin Ketorolac Tromethamine 30 mg ONCE ONCE IVP 09/29/21 10:15 09/29/21 10:16 DC 09/29/21 10:17 30 MG (CHELSIE HERRERA MD) Vital Signs/I&O 09/29/21 09/29/21 09:35 10:34 Temp 37.3 Pulse 113 97 Resp 20 18 B/P (MAP) 116/78 (91) 103/93 Pulse Ox 96 98 O2 Delivery Room Air Room Air (CHELSIE HERRERA MD) Vital Signs/I&O Capillary Refill : (BEBE RIVAS MED STUDENT) Blood Pressure Mean: 91 Progress Note : Time: 10:20 Progress Note Patient seen and evaluated by me, 21-year-old with 48 hours of flulike symptoms, mild cough, nasal congestion, decreased appetite, headache body aches and fever to 103. Patient was initially seen at [facility] urgent care this morning. He was given a gram of Tylenol, he has defervesced and his heart rate has gone from the 160s at urgent care down to 103 here in the emergency department. He did have one episode of nausea and vomiting earlier today his nausea has resolved. No diarrhea. No problems with urination. Sick contact, his significant other has similar symptoms over the last week. He was flu negative at urgent care. Family member request Covid swab, he is unvaccinated. Physical exam pertinent for mild tachycardia at 103; mild pharyngeal erythema. Psoriatic rash - diffuse. Non tender belly; clear lungs. Normal neurological exam. Patient states that he would like to try and drink fluids at home, declines laboratory evaluation and IV fluids. Will treat headache and body aches with IV Toradol. He also concomitantly had some chest pain which sounds musculoskeletal in origin as it is exacerbated by movements of his upper extremities. No associated shortness of breath, diaphoresis. No significant risk factors for coronary artery disease. He is a non-smoker. No concerns for sepsis at this time. He is overall feeling better except for his headache. We will send Karen to [facility] pharmacy. Counseled on return precautions. Patient verbalized understanding, all questions are sought and answered. Will contact patient with Covid results. (CHELSIE HERRERA MD) ECG Initial ECG Impression Date: Sep 29, 2021 Initial ECG Impression Time: 09:54 Initial ECG Rate: 104 Initial ECG Rhythm: S.Tach Initial ECG Intervals NE 140 QRS 89 QTc 412 No ectopy; ST elevation (j point) over V4, 5, 6 - early repolarization Initial ECG Impression: Nonspecific Changes (CHELSIE HERRERA MD) Departure Impression Primary Impression: Viral syndrome Additional Impression: Person under investigation for COVID-19 Disposition: HOME, SELF-CARE Condition: Improved Departure-Patient Inst. Decision time for Depature: 10:24 (CHELSIE HERRERA MD) Referrals: [facility],LOCAL PHYSICIAN (PCP) Primary Care Physician Patient Instructions: Viral Syndrome (DC) Add. Discharge Instructions: Drink plenty of fluids to stay well-hydrated. I have sent a prescription for Zofran, a nausea medication to [facility] pharmacy for you. You can take 1 every 8 hours as needed for nausea. [id number] ibuprofen 3 tablets which is 600 mg every 6 hours with food as needed for body aches/headache/fever. You have been tested for COVID-19 today. The hospital will contact you if your test is positive, if you do not hear from the hospital later today please call to get your results. Quarantine at home until you receive a negative test result. Follow-up with the health department if your test is positive. Return to the emergency department for any worsening symptoms, high fever that does not come down with ibuprofen or Tylenol, persistent vomiting or any other emergent concerning symptoms. Scripts Ondansetron (Ondansetron Odt) 4 Mg Tab.rapdis 4 MG PO Q8H PRN for nausea, #15 TAB Prov: CHELSIE HERRERA MD 09/29/21 Work/School Note: Work Release Form Date Seen in the Emergency Department: Sep 29, 2021 Return to Work: Oct 01, 2021 Other Restrictions Listed Below: positive for Influenza A Verification and Attestation of Medical Student E/M Service A medical student performed and documented this service in my presence. I reviewed and verified all information documented by the medical student and made modifications to such information, when appropriate. I personally performed the physical exam and medical decision making. Chelsie Herrera, Sep 29, 2021,10:26 (CHELSIE HERRERA MD) BEBE RIVAS MED STUDENT Sep 29, 2021 09:56 CHELSIE HERRERA MD Sep 29, 2021 10:26
[2021-09-29] MEDS ORDERED: KETOROLAC 30 MG/ML VIAL IVP ONE (10:15)
[2021-09-29] MEDS ORDERED: ONDA4TAB11 PO (10:24)
[2021-09-29 10:34] VITALS: BP 103/93
== END 2021-09-29 10:34 | disposition home or self-care (01) ==
LOC: EDUNIT# 09:30 → ER 09:33
DX: B34.9 Viral infection, unspecified (principal); Z20.822 Contact with and (suspected) exposure to COVID-19
CPT/HCPCS: 87636; 93005; 99285